=== PATIENT | male | born 1945 | race Caucasian/White ===

== ENCOUNTER 2018-09-06 07:27 | Observation (INO) ==
[2018-08-29 16:18] LABS: HEMATOCRIT 47.1 % (42.0-52.0); HEMOGLOBIN 15.3 g/dL (14.0-18.0); MCH 29.4 PG (27-31); MCHC 32.5 g/dL (33-37); MCV 90.4 FL (81-99); RBC 5.21 XMIL (4.7-6.1); RDW 13.3 % (11.5-14.5); WBC 11.11 X1000 (4.8-10.8)
[2018-08-29 16:30] LABS: INR 1.09
[2018-08-29 16:31] LABS: PTT 33.4 Seconds (22.3-41.8)
[2018-08-29 16:39] LABS: AGAP 15; BUN 11 mg/dL (8-22); CALCIUM 9.9 mg/dL (8.8-10.2); CHLORIDE 102 mmol/L (98-107); COSMO 278; CREATININE 0.9 mg/dL (0.7-1.2); ESTIMATED GFR > 60; GLUCOSE 118 mg/dL (70-104); SODIUM 139 mmol/L (136-145); TCO2 22 mmol/L (25-35)
[2018-09-06] MEDS ORDERED: REGLAN ONE (07:43)
[2018-09-06] MEDS ORDERED: PEPCID ONE (07:43)
[2018-09-06] MEDS ORDERED: LR 1,000 ML ONE (07:43)
[2018-09-06] MEDS ORDERED: KEFZOL 1 GM/D5W 2 GM/100 ML IVPB ONE (07:43)
[2018-09-06] MEDS ORDERED: DIPRIVAN 1% ONE (08:45)
[2018-09-06] MEDS ORDERED: QUELICIN (DOSE) ONE (08:47)
[2018-09-06] MEDS ORDERED: XYLOCAINE-MPF 2% ONE (08:47)
[2018-09-06] MEDS ORDERED: NORCURON ONE (08:48)
[2018-09-06] MEDS ORDERED: SODIUM CHLORIDE 0.9% 10 ML ONE (08:48)
[2018-09-06] MEDS ORDERED: FENTANYL ONE (08:50)
[2018-09-06] MEDS ORDERED: ROBINUL ONE (12:23)
[2018-09-06] MEDS ORDERED: ZOFRAN ONE (12:23)
[2018-09-06] MEDS ORDERED: NS 1,000 ML ONE (15:31)
--- NOTE | 2018-09-06 16:08 | Diag Imaging Result Doc PS360 ---
CHEST-PORTABLE - 09/06/2018 INDICATION: POST OP COMPARISON: None FINDINGS: Lung volumes are severely low central crowding. No obvious infiltrates or edema. Heart size is top normal. IMPRESSION: Severely low lung volumes but otherwise no acute disease. Electronically signed by Simon Burns 09/06/2018 4:06 PM
[2018-09-06] MEDS ORDERED: LABETALOL IV PRN (16:15)
[2018-09-06] MEDS ORDERED: NORCO-5 PO PRN (16:15)
[2018-09-06] MEDS ORDERED: PHENERGAN IV PRN (16:15)
[2018-09-06] MEDS ORDERED: SODIUM CHLORIDE 0.9% INJ PRN (16:15)
[2018-09-06] MEDS ORDERED: ZOFRAN IV PRN (16:15)
[2018-09-06] MEDS ORDERED: OFIRMEV 1000 MG/ISOTONIC SOLN 1,000 MG/100 ML BOTTLE IV PRN (16:15)
[2018-09-06] MEDS ORDERED: NORCO-7.5 PO PRN (16:15)
[2018-09-06] MEDS ORDERED: PHENERGAN PR PRN (16:15)
[2018-09-06] MEDS ORDERED: NORCO-10 PO PRN (16:15)
[2018-09-06] MEDS ORDERED: PHENERGAN PO PRN (16:15)
[2018-09-06] MEDS ORDERED: MORPHINE IV PRN (16:15)
[2018-09-06] MEDS ORDERED: TYLENOL PO PRN (16:15)
[2018-09-06] MEDS ORDERED: BENADRYL LIQUID PO PRN (16:15)
[2018-09-06] MEDS: NS 1,000 ML IV SCH (16:55)
[2018-09-06] MEDS ORDERED: CHLORASEPTIC SPRAY MT PRN (19:19)
[2018-09-06] MEDS: KEFZOL 2 GM/D5W 2 GM/50 ML IVPB IV SCH (22:25)
[2018-09-06] MEDS: LIBRIUM PO SCH (22:25)
[2018-09-06] MEDS: APRESOLINE PO SCH (22:25)
[2018-09-06] MEDS: COLACE PO SCH (22:25)
[2018-09-06] MEDS: LEVSIN PO SCH (23:34)
[2018-09-07] MEDS: KEFZOL 2 GM/D5W 2 GM/50 ML IVPB IV SCH (03:08)
[2018-09-07] MEDS: NS 1,000 ML IV SCH (05:00)
[2018-09-07 06:44] LABS: HEMATOCRIT 42.3 % (42.0-52.0); HEMOGLOBIN 13.3 g/dL (14.0-18.0); MCHC 31.4 g/dL (33-37); MCV 92.4 FL (81-99); MPV 10.8 FL (7.4-10.4); RBC 4.58 XMIL (4.7-6.1); RDW 13.3 % (11.5-14.5); WBC 16.18 X1000 (4.8-10.8)
[2018-09-07 07:13] LABS: CALCIUM 8.8 mg/dL (8.8-10.2); CREATININE 1.2 mg/dL (0.7-1.2); POTASSIUM 4.8 mmol/L (3.5-5.1)
[2018-09-07 07:54] VITALS: BP 130/66
[2018-09-07] MEDS ORDERED: GLUCOPHAGE PO SCH (08:00)
[2018-09-07] MEDS ORDERED: GLUCOTROL PO SCH (08:00)
[2018-09-07] MEDS: LIBRIUM PO SCH (08:12)
[2018-09-07] MEDS: APRESOLINE PO SCH (08:12)
[2018-09-07] MEDS: LEVSIN PO SCH (08:13)
[2018-09-07] MEDS: COLACE PO SCH (08:25)
[2018-09-07] MEDS ORDERED: PERIDEX MT SCH (09:00)
[2018-09-07] MEDS ORDERED: METFORMIN HCL PO SCH (09:00)
[2018-09-07] MEDS ORDERED: GLIPIZIDE PO SCH (09:00)
[2018-09-07] MEDS ORDERED: CENTRUM TABLET PO SCH (09:00)
[2018-09-07] MEDS ORDERED: ARICEPT PO SCH (09:00)
[2018-09-07] MEDS ORDERED: QUESTRAN PO SCH (11:00)
--- NOTE | 2018-09-21 11:54 | OPERATIVE NOTE ---
PROCEDURE DATE: 09/06/2018 SURGEON: Saurabh Mitchell MD. PREOPERATIVE DIAGNOSES: 1. Right large staghorn stone. 2. Recurrent urinary tract infections. PROCEDURE: 1. Cystoscopy with placement of right ureteral stent. 2. Percutaneous antegrade nephrostomy access via 1 incision. 3. Right percutaneous nephrostolithotomy with ultrasonic wand. INDICATIONS: A 73-year-old male with gross hematuria and recurrent UTIs, who underwent imaging and cystoscopy, which revealed a bladder stone, BPH, and a large right staghorn stone. On KUB, it measures 3.67 cm in greatest dimension. He had his bladder stone addressed as well as BPH, and now presents for definitive treatment of the right staghorn stone. FINDINGS: Adequate hemostasis at the conclusion of the case. Over 95% of the stone burden was removed. Successful placement of 6-Kyrgyz x 24 cm ureteral stent at the conclusion of the case. PROCEDURE IN DETAIL: After obtaining informed consent, patient was brought to the operating room. Perioperative antibiotics and general endotracheal anesthesia were administered. He was positioned in the frogleg modified position with his genitals prepped and draped sterile fashion. A 21-Kyrgyz rigid cystoscope was used to gain access to the bladder, which was briefly examined. He had TUR defect of his prostatic urethra, and bladder without evidence of mucosal lesions. He had trabeculations throughout and no significant diverticula. We were able to visualize the right ureteral orifice, and it was cannulated with a PTFE wire and advanced to presumably the level of the right renal pelvis. The cystoscope was then removed, and a 5-Kyrgyz open-end ureteral catheter was advanced. A 16-Kyrgyz Nieves catheter was then introduced, and the bladder was drained. We secured ureteral catheter to the Nieves catheter with a 0 silk suture. Following that, we repositioned the patient into a prone position with his extremities had appropriately padded. We re-prepped and redraped him. Retrograde pyelogram was performed with 50% diluted Omnipaque dye via the ureteral catheter. It revealed a fairly delicate calyceal system without significant evidence of hydronephrosis and a large filling defect corresponding to the staghorn stone. I used live fluoroscopy in the anterior-posterior orientation as well as a 20 degree angle toward the surgeon to identify the lower pole calyx. A small stab incision was made with 11 blade followed by introduction of the finder needle. It was introduced using a bull's-eye method under the live fluoroscopy until the location was confirmed to be in a lower pole calyx. We retrieved the inner sheath and were able to see clear and pink urine emanate through the needle. This was followed by introduction of a PTFE wire via the outer needle sheath with the coil in the renal pelvis. The needle was then retrieved and an incision was extended to approximately 1.5 cm. We then introduced an 8, 10-Kyrgyz, 12-Kyrgyz dilator sheath over the wire into the renal pelvis followed by introduction of the dual lumen catheter. The inner lumen was removed, and having a large outer lumen, I was able to place a second wire which was a SensorWire into the renal pelvis as well. After that, we retrieved the outer sheath and placed the AccuView dilator balloon over the wire. The pressure was increased by instilling the contrast into the balloon to 12 cm of water. This was followed by introduction of a 30-Kyrgyz sheath over the balloon making sure that we did not introduced it past the beginning of the lower pole calyx. This was confirmed by fluoroscopy. The balloon was then deflated and retrieved. Rigid nephroscope was then used to gain access via the 30-Kyrgyz sheath, and the stone was easily seen. It started in the lower pole appeared to involve interpolar, upper pole, and area calices as well as the renal pelvis. Ultrasound wand was used to work on the stone. It was fairly dense. But we able to address lower pole, upper pole, and renal pelvis stones. After all the visible stones were seen and addressed, on fluoroscopy, there still appeared to be a sizable fragment in the interpolar area. I then switched from rigid nephroscope to a flexible cystoscope, which was introduced and with welder assistant retrograde pyelogram, and by direct vision, I was able to identify the inner pole vy with that stone in it. We used 0 Nitinol basket and retrieved stone toward the renal pelvis. I then extracted the stone fragments with a Perc NCircle device through the rigid nephroscope. At this time, the fluoroscopy showed that there appeared to be maybe one 5 mm fragment remaining in an interpolar calyx. I have repeatedly attempted to identify the vy and could not find the stone. I have repeated retrograde pyelograms and again, attempted to guide the cystoscope into the vy under fluoroscopy, but was unsuccessful in doing so. Eventually, we concluded that the patient had over 90% of his stone burden addressed and we decided to stop the procedure. The UPJ area was examined. There was no evidence of injury or sizable stone fragments in that area. I then introduced a PTFE wire into the bladder lumen in an antegrade fashion, as confirmed by fluoroscopy. A 6-Kyrgyz, 24 cm ureteral stent was then introduced over the wire via the rigid nephroscope with assistance of a pusher, and the proximal coil was obtained in the renal pelvis. The distal coil was visible by fluoroscopy in the bladder. The string was obviously detached from the stent. Following that, the 30-Kyrgyz sheath was slowly withdrawn, and nephroscopic examination revealed no evidence of significant bleeding. A 3-0 chromic suture was used in interrupted fashion to close his back incision. Surgical dressing was applied. He was extubated and taken to PACU for further recovery with Nieves catheter in place and stent in good position. ESTIMATED BLOOD LOSS: 300 mL. COMPLICATIONS: None. DISPOSITION: To PACU with stat labs as well as chest x-ray per protocol and eventually to the floor with Nieves catheter in place and the stent in place. cc: Saurabh Mitchell MD
== END 2018-09-07 10:49 | disposition home or self-care (01) ==
LOC: 4N 07:27 → OR 07:27
PROVIDERS: ADMIT Urology; ATTEND Urology
CPT/HCPCS: 71010; 71045; 76000; 80048; 82360; 85027; 85610; 85730; 88300; 94761; 94799; A9270; J0330; J0690; J2405; J3010; J7030; J7120; Q9966; Q9967